=== PATIENT | male | born 1935 | race Caucasian/White ===

== ENCOUNTER → 2024-03-13 | Emergency (ER) | payer MEDICARE ==
[~2024-03-13] VITALS: Ht 182.8 cm; Wt 71.2 kg
[~2024-03-13] MED LIST: ACID REDUCER20 MG PO; ASPIRIN CHEWABL81 MG PO; COLACE100 MG PO; DEPAKOTE SPRIN125 MG PO; Doxycycline Hyclate 100 MG CAP PO ONE; EXELON1 EAC2 TD; FLOMAX0.4 MG PO; HALOPERIDOL5 MG/1 M1 IM; HYOSCYAMINE0.125 M3 PO; LASIX40 MG PO; LEVO-T50 MCG PO; MILK OF MA400 MG/53 PO; NAMENDA-5 PO; SODIUM CHLORIDE 0.9% 1,000 ML IV ONE; THORAZINE10 MG PO; VITAMIN D3125 MCG PO; XANAX0.5 MG PO; [UNRECOGNIZED DRUG - OTHER] PO
[2024-03-13 18:11] LABS: BASO # 0.1 10*3/uL (0.0-0.1); BASO % 0.7 % (0.0-1.0); EOS % 0.6 % (1.0-4.0); HEMATOCRIT 42.8 % (42.0-52.0); LYMPH # 0.7 10*3/uL (1.3-4.4); MEAN CELL VOLUME 97.9 fl (80.0-94.0); MEAN CORPUSCULAR HGB 30.7 pg (27.0-31.0); MEAN CORPUSCULAR HGB CONC 31.3 g/dl (33.0-37.0); MEAN PLATELET VOLUME 10.5 fl (9.6-12.3); MONO # 0.6 10*3/uL (0.1-1.0); MONO % 8.5 % (3.0-9.0); NEUT # 5.7 10*3/uL (2.3-7.9); NEUT % 79.9 % (47.0-73.0); PLATELET COUNT AUTOMATED 142 10*3/uL (130-400); RED BLOOD COUNT 4.37 10*6/uL (4.50-5.90); RED CELL DISTRI WIDTH 14.5 % (0-14.5); WHITE BLOOD COUNT 7.1 10*3/uL (4.8-10.8)
[2024-03-13 18:20] LABS: ACT PARTIAL THROMBO TIME 26.4 SECONDS (20.0-32.1)
[2024-03-13 18:26] LABS: ALKALINE PHOSPHATASE 127 U/L (46-116); BUN 27 mg/dl (9-23); CHLORIDE 106 mmol/L (98-107); CPK 110 U/L (34-171); LIPASE 21 U/L (12-53); SGPT/ALT 17 U/L (5-49); TOTAL PROTEIN 6.7 gm/dL (6.0-8.0)
[2024-03-13 18:33] LABS: ETHYL ALCOHOL < 3.0 mg/dl (<3)
[2024-03-13 18:36] LABS: BILIRUBIN Negative (Negative); BLOOD Negative (Negative); CLARITY Clear (Clear); COLOR Dark Yellow (Yellow); GLUCOSE Negative (Negative); KETONE Trace (Negative); LEUKO ESTERASE Trace (Negative); NITRITE Negative (Negative); SPECIFIC GRAVITY 1.025 (1.001-1.030)
[2024-03-13 18:44] LABS: BACTERIA 1+; MUCOUS 1+; RBC 0-2 rbc/hpf (0-2); URINE AMPHETAMINES Negative (1000ng/ml); URINE BARBITURATES Negative (200ng/ml); URINE BENZODIAZEPINES Positive (200ng/ml); URINE CANNABINOIDS (THC) Negative (50ng/ml); URINE COCAINE Negative (300ng/ml); URINE METHADONE Negative (300ng/ml); URINE OPIATES Negative (300ng/ml); URINE PHENCYCLIDINE Negative (25ng/ml)
== END ==
LOC: ED 17:02
PROVIDERS: Internal Medicine
DX: Z02.89 Encounter for other administrative examinations (principal); Z20.822 Contact with and (suspected) exposure to COVID-19; F03.90 Unspecified dementia, unspecified severity, without behavioral disturbance, psychotic disturbance, mood disturbance, and anxiety; Z88.0 Allergy status to penicillin; Z88.6 Allergy status to analgesic agent; Z88.1 Allergy status to other antibiotic agents; Z88.5 Allergy status to narcotic agent